=== PATIENT | male | born 1975 | race Caucasian/White ===

== ENCOUNTER 2022-08-28 23:01 | Emergency (ER) | payer SELFPAY ==
[~2022-08-28] VITALS: Ht 178 cm; Wt 73.0 kg
[2022-08-28 23:10] VITALS: BP 128/92
[2022-08-29] MEDS ORDERED: KETOROLAC 30 MG/ML VIAL IVP STA (00:13)
[2022-08-29] MEDS ORDERED: ONDANSETRON 4 MG/2 ML (SDV) Z0FRAN IVP ONE (00:15)
[2022-08-29] MEDS ORDERED: LACTATED RINGERS 1,000 ML IV ONE (00:15)
[2022-08-29 00:38] LABS: BASOPHILS # (AUTO) 0.1 10^3/uL (0.0-0.1); BASOPHILS % (AUTO) 1 % (0-10); EOSINOPHILS # (AUTO) 0.4 10^3/uL (0.0-0.3); EOSINOPHILS % (AUTO) 6 % (0-10); HEMATOCRIT 40 % (40-54); LYMPHOCYTES # (AUTO) 1.9 10^3/uL (1.0-4.0); LYMPHOCYTES % (AUTO) 29 % (12-44); MEAN CORPUSCULAR HEMOGLOBIN 35 pg (25-34); MEAN CORPUSCULAR HGB CONC 35 g/dL (32-36); MEAN CORPUSCULAR VOLUME 101 fL (80-99); MEAN PLATELET VOLUME 9.5 fL (9.0-12.2); MONOCYTES # (AUTO) 0.6 10^3/uL (0.0-1.0); MONOCYTES % (AUTO) 10 % (0-12); NEUTROPHILS # (AUTO) 3.4 10^3/uL (1.8-7.8); NEUTROPHILS % (AUTO) 54 % (42-75); PLATELET COUNT 248 10^3/uL (130-400); WHITE BLOOD COUNT 6.3 10^3/uL (4.3-11.0)
[2022-08-29 00:47] LABS: ALBUMIN 3.9 GM/DL (3.2-4.5); POTASSIUM 3.6 MMOL/L (3.6-5.0)
[2022-08-29 00:48] LABS: CALCIUM 8.6 MG/DL (8.5-10.1)
[2022-08-29 00:50] LABS: TOTAL PROTEIN 6.3 GM/DL (6.4-8.2)
[2022-08-29 00:51] LABS: BILIRUBIN,TOTAL 0.3 MG/DL (0.1-1.0)
[2022-08-29 00:53] LABS: CREATININE SERUM 0.73 MG/DL (0.60-1.30)
[2022-08-29 00:56] LABS: MAGNESIUM 2.1 MG/DL (1.6-2.4)
[2022-08-29] MEDS ORDERED: CYCL10TA25 PO (01:29)
[2022-08-29] MEDS ORDERED: KETO10TA PO (01:29)
--- NOTE | 2022-08-29 01:31 | ED Head Injury ---
General Chief Complaint: Head/Cervical Problems Stated Complaint: HEAD INJURY Nursing Triage Note: Pt presents with c/o head pain. Pt states that he was jacking up a house when a floor joist broke and a large wood beam flew out and hit him on the L side of the head. Pt denies LOC. Event happened 2 nights ago, he reports increasing headache and nausea since. Pt's at bedside reports pt's L eye also appears "droopy" Pt has taken migraine medication for the pain without much relief. Allergies and Home Medications Allergies Coded Allergies: Penicillins (Verified Allergy, Unknown, 08/28/22) Physical Exam Vital Signs Vital Signs - First Documented 08/28/22 23:10 Temp 36.4 Pulse 66 Resp 16 B/P (MAP) 128/92 (104) Capillary Refill : Less Than 3 Seconds Height, Weight, BMI Height: '" Weight: lbs. oz. kg; 23.00 BMI Method: Progress/Results/Core Measures Results/Orders Lab Results Laboratory Tests Test 08/29/22 00:27 Range/Units White Blood Count 6.3 4.3-11.0 10^3/uL Red Blood Count 4.01 L 4.30-5.52 10^6/uL Hemoglobin 14.0 13.3-17.7 g/dL Hematocrit 40 40-54 % Mean Corpuscular Volume 101 H 80-99 fL Mean Corpuscular Hemoglobin 35 H 25-34 pg Mean Corpuscular Hemoglobin Concent 35 32-36 g/dL Red Cell Distribution Width 12.8 10.0-14.5 % Platelet Count 248 130-400 10^3/uL Mean Platelet Volume 9.5 9.0-12.2 fL Immature Granulocyte % (Auto) 0 % Neutrophils (%) (Auto) 54 42-75 % Lymphocytes (%) (Auto) 29 12-44 % Monocytes (%) (Auto) 10 0-12 % Eosinophils (%) (Auto) 6 0-10 % Basophils (%) (Auto) 1 0-10 % Neutrophils # (Auto) 3.4 1.8-7.8 10^3/uL Lymphocytes # (Auto) 1.9 1.0-4.0 10^3/uL Monocytes # (Auto) 0.6 0.0-1.0 10^3/uL Eosinophils # (Auto) 0.4 H 0.0-0.3 10^3/uL Basophils # (Auto) 0.1 0.0-0.1 10^3/uL Immature Granulocyte # (Auto) 0.0 0.0-0.1 10^3/uL Sodium Level 141 135-145 MMOL/L Potassium Level 3.6 3.6-5.0 MMOL/L Chloride Level 108 H 98-107 MMOL/L Carbon Dioxide Level 20 L 21-32 MMOL/L Anion Gap 13 5-14 MMOL/L Blood Urea Nitrogen 12 7-18 MG/DL Creatinine 0.73 0.60-1.30 MG/DL Estimat Glomerular Filtration Rate 114 BUN/Creatinine Ratio 16 Glucose Level 87 70-105 MG/DL Calcium Level 8.6 8.5-10.1 MG/DL Corrected Calcium 8.7 8.5-10.1 MG/DL Magnesium Level 2.1 1.6-2.4 MG/DL Total Bilirubin 0.3 0.1-1.0 MG/DL Aspartate Amino Transf (AST/SGOT) 33 5-34 U/L Alanine Aminotransferase (ALT/SGPT) 27 0-55 U/L Alkaline Phosphatase 52 40-136 U/L Total Protein 6.3 L 6.4-8.2 GM/DL Albumin 3.9 3.2-4.5 GM/DL Serum Alcohol 85 H <10 MG/DL My Orders Orders - LO TABARES DO Ct Head/Face/Cervical Wo (08/28/22 23:17) Ed Iv/Invasive Line Start (08/29/22 00:13) Monitor-Rhythm Ecg Trace Only (08/29/22 00:13) Alcohol (08/29/22 00:13) Cbc With Automated Diff (08/29/22 00:13) Comprehensive Metabolic Panel (08/29/22 00:13) Drug Screen Stat (Urine) (08/29/22 00:13) Magnesium (08/29/22 00:13) Ua Culture If Indicated (08/29/22 00:13) Ed Iv/Invasive Line Start (08/29/22 00:13) Lactated Ringers (Lr 1000 Ml Iv Solution (08/29/22 00:15) Ondansetron Injection (Zofran Injectio (08/29/22 00:15) Ketorolac Injection (Toradol Injection) (08/29/22 00:13) Medications Given in ED Current Medications Medications Dose Ordered Sig/Radha Route Start Time Stop Time Status Last Admin Dose Admin Lactated Ringer's 1,000 ml @ 0 mls/hr Q0M ONCE IV 08/29/22 00:15 08/29/22 00:16 DC 08/29/22 00:25 0 MLS/HR Ondansetron HCl 4 mg ONCE ONCE IVP 08/29/22 00:15 08/29/22 00:16 DC 08/29/22 00:25 4 MG Vital Signs/I&O 08/28/22 23:10 Temp 36.4 Pulse 66 Resp 16 B/P (MAP) 128/92 (104) Blood Pressure Mean: 104 Departure Impression Primary Impression: Concussion without loss of consciousness Additional Impressions: Headache Neck sprain Dehydration Heat exhaustion Disposition: HOME, SELF-CARE Condition: Improved Departure-Patient Inst. Decision time for Depature: 01:27 Referrals: NO,LOCAL PHYSICIAN (PCP) Primary Care Physician [facility] Patient Instructions: Heat Illness ED, Dehydration, Adult ED, Cervical Sprain ED, Concussion, Adult (DC) Add. Discharge Instructions: KEEP COOL--AVOID BEING IN THE HEAT FOR THE NEXT WEEK INCREASED YOUR FLUID INTAKE--DRINK EQUAL AMOUNTS OF WATER AND GATORADE--DRINK ENOUGH SO YOU ARE URINATING EVERY 2-3 HOURS WHILE AWAKE NO DRIVING OR WORKING FOR THE NEXT WEEK NO ALCOHOL FOR THE NEXT WEEK, AND NO ALCOHOL WHILE YOU ARE TAKING THE PAIN MEDICATION OR MUSCLE RELAXANT. FOLLOW UP WITH [facility] IN 2-3 DAYS FOR FURTHER CARE, RETURN TO ER IF SYMPTOMS WORSEN All discharge instructions reviewed with patient and/or family. Voiced understanding. Scripts Cyclobenzaprine HCl (Cyclobenzaprine HCl) 10 Mg Tablet 10 MG PO Q8H PRN for SPASMS, #15 TAB 0 Refills Prov: LO TABARES DO 08/29/22 Ketorolac Tromethamine (Ketorolac Tromethamine) 10 Mg Tablet 10 MG PO Q6H for Pain, #15 TAB Prov: LO TABARES DO 08/29/22 LO TABARES DO Aug 29, 2022 01:31
--- NOTE | 2022-08-29 09:13 | Diagnostic Imaging Report ---
PROCEDURE: CT head, face, and cervical spine without contrast. TECHNIQUE: Multiple contiguous axial images were obtained through the head, neck, and facial bones without the use of intravenous contrast. Sagittal and coronal reformations through the cervical spine and facial bones were also performed. Auto Exposure Controls were utilized during the CT exam to meet ALARA standards for radiation dose reduction. INDICATION: Head and face trauma and injury. Facial pain and dizziness. No relevant comparison examination is available. FINDINGS: The CT of the head demonstrates no evidence of an acute intracranial abnormality. There is no intracranial hemorrhage. There is no intracranial mass effect or shift. There is no hydrocephalus. There is no abnormal extra-axial fluid collection. There are no findings of territorial loss of orourke-white differentiation. There is no edema. The mastoid air cells are clear. The paranasal sinuses are clear. No acute calvarial abnormality. The CT of the face demonstrates no evidence of an acute facial fracture. The bony orbit is intact. The intraorbital contents are normal. There is no nasal bone fracture. The maxilla is intact. There is no fracture of the zygomatic arches or of the pterygoids. There is no TMJ dislocation or mandibular fracture. 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 Multiple dental caries are also noted. Cervical spinal demonstrates multilevel cervical degenerative disc disease and facet arthropathy without findings of an acute or suspicious osseous abnormality. Endplate changes most advanced at C5-C6 and C6-C7. Craniocervical junction relationships are maintained. The facets are normally aligned. There is no facet joint or disc space widening. There is no acute cervical spine fracture. Soft tissues of the neck demonstrate no acute process. The lung apices are clear. IMPRESSION: 1. No CT evidence of an acute intracranial abnormality. 2. No findings of an acute facial fracture. Orbital contents are unremarkable. Paranasal sinuses are clear. 3. Mild background degenerative features within the cervical spine without findings of fracture or traumatic malalignment. 4. I agree with the preliminary [facility] report. Dictated by: Dictated on workstation # [id number]
== END 2022-08-29 01:50 | disposition home or self-care (01) ==
LOC: ER 23:04
DX: S06.0X0A Concussion without loss of consciousness, initial encounter (principal); S13.9XXA Sprain of joints and ligaments of unspecified parts of neck, initial encounter; T67.5XXA Heat exhaustion, unspecified, initial encounter; E86.0 Dehydration; Z28.310 Unvaccinated for COVID-19; W22.8XXA Striking against or struck by other objects, initial encounter
CPT/HCPCS: 70450; 70486; 72125; 80053; 83735; 85025; 99284; G0480; 36415; 80320